=== PATIENT | male | born 1935 | race Caucasian/White ===

== ENCOUNTER → 2018-05-27 | Outpatient (CLI) | payer OTHER | END | disposition home or self-care (01) | LOC: PCVCCLINIC 11:30 | PROVIDERS: ATTEND Internal Medicine Cardiovascular Disease | DX: E78.00 Pure hypercholesterolemia, unspecified (principal); R06.02 Shortness of breath; N18.3 Chronic kidney disease, stage 3 (moderate); I44.7 Left bundle-branch block, unspecified; R09.89 Other specified symptoms and signs involving the circulatory and respiratory systems; I25.10 Atherosclerotic heart disease of native coronary artery without angina pectoris; Z95.2 Presence of prosthetic heart valve; Z87.891 Personal history of nicotine dependence | CPT/HCPCS: 80061; 93005; G0463 ==

== ENCOUNTER → 2018-06-15 | Outpatient (CLI) | payer OTHER ==
[~2018-06-15] MED LIST: DIAZEPAM 10 MG TABLET. ONE; FUROSEMIDE 40 MG/4 ML VIAL. ONE; HEPARIN 1,000 UNIT/ML VIAL for PCVC ONE; IOHEXOL 350 MG/ML 100 ML VIAL. ONE; IOHEXOL 350 MG/ML 50 ML VIAL. ONE; IV NORMAL SALINE 1000ML BAG 1,000 ML ONE; IV NORMAL SALINE 500ML BAG 1,000 ML ONE; LIDOCAINE 1% PF 30 ML VIAL. ONE; LIDOCAINE 1%/EPI 1:100,000 20 ML VIAL. ONE; METOPROLOL TARTRATE 5 MG/5 ML VIAL. IVP ONE; MIDAZOLAM HCL/PF 2 MG/2 ML VIAL. ONE; fentaNYL PF VIAL 100 MCG/2 ML VIAL ONE
--- NOTE | 2018-06-15 13:44 | PCVCINTER ---
EXAM: 1. AORTOGRAM AND BILATERAL ILIOFEMORAL ANGIOGRAPHY 2. BILATERAL RENAL ANGIOGRAPHY 3. RIGHT COMMON FEMORAL VEIN SHEATH PLACEMENT INDICATION: Hypertension. Renal atherosclerosis. Peripheral arterial disease. Planned right heart catheterization. PROCEDURE: Procedure and risks of the procedures listed above were discussed with the patient and consent obtained. Risks including but not limited to bleeding, infection, stroke, vascular injury, neurologic injury, embolization, allergic reactions, bowel ischemia requiring resection, and contrast-induced nephropathy requiring dialysis were discussed as appropriate and consent obtained. Patient was placed on the angiography table. IV conscious sedation was used throughout procedure with appropriate monitoring from 12:15 PM through 12:45 PM. The right groin was prepped and draped in the normal sterile fashion. Ultrasound was used to interrogate the right groin and demonstrate the right common femoral artery. An ultrasound image was saved. Under ultrasound guidance a 21 gauge needle was used to gain access into the right common femoral artery and a 5F vascular sheath was placed. Under ultrasound guidance access into the right common femoral vein was obtained in the standard fashion and a 7 Algerian sheath was placed for right heart catheterization to follow by Dr. Gomez. Catheter was placed into the suprarenal abdominal aorta and abdominal aortic angiogram performed. Catheter was placed into the distal abdominal aorta and bilateral iliofemoral angiography performed. Catheter was placed into the right renal arteries and right renal angiograms performed. Catheter was placed into the left renal arteries and left renal angiograms performed. Dr. Gomez joined the procedure and he performed coronary angiography. Please see his separate dictation for details. Catheters and wires removed. Sheath was removed and hemostasis obtained using the FISH device. No immediate complications. FINDINGS: Aortogram: There is one right and 2 left renal arteries. Mild plaque infrarenal abdominal aorta is normal in caliber. Bilateral iliofemoral angiography: The right and left common iliac arteries are patent. Both internal iliac arteries are patent. The right and left external iliac arteries are patent. The right and left common femoral and profunda femoral arteries are patent as well as the visualized portions of the upper superficial femoral arteries bilaterally. Right renal artery: Minimal plaque proximal vessel does not cause significant stenosis. Left renal artery: There are 2 left renal arteries. Minimal plaque in the proximal portions of these vessels is not cause significant stenosis. IMPRESSION: No aortic or iliofemoral arterial flow-limiting stenosis. No significant renal artery stenosis. LOC:[id number]
--- NOTE | 2018-06-16 19:13 | PCVCINTER ---
APPROVED REPORT Study performed: 06/15/2018 11:58:27 Patient Details Patient Status: Out-Patient Room #: 3 The patient is a 83 year-old Male Event Personnel Jason Mendoza MD, Rena Taylor RT(R)(), Nicko Jansen RT(R), Viji Martin RT(R)(), Tobi Hernandez RN Risk Factors Dysplipidemia (Type: 1)Obesity, HypercholesterolemiaPhysical Activity, Last Creatanine 1.3Tobacco History (Former) Previous Procedures/Diagnoses Previous Femoral ProcedurePrevious Valve Surgery, Previous CHF, CAD, LV dysfunction, Arrhythmias - Supraventricular tachycardias->Persistent AF, Arrhythmias - Intraventricular conduction->Left bundle-branch block (LBBB), Valvular heart disease Procedure Narrative A Right Heart Catheterization was performed with a 7 Fr. Thompson-Laura catheter and pressure were recorded. Cardiac outputs were obtained by the Thermal Dilution method. The right coronary system was accessed and visualized with a JR4 catheter. The left coronary system was accessed and visualized with a JL4 catheter. Closure device was deployed with a 6 Fr FISH. Hemostasis was obtained with manual pressure following sheath removal without any complications. The patient tolerated the procedure well and there were no complications associated with the procedure. There was no hematoma. Hemodynamics The right atrial mean pressure is 14 mmHg. The right ventricular pressure is 49/3 mmHg. The pulmonary artery pressure is 51/18 mmHg with a mean of 31 mmHg. The mean pulmonary capillary wedge pressure is 20 mmHg. The aortic pressure is 106/45 mmHg with a mean of 68 mmHg. The left ventricular pressure is 16 mmHg with a mean of 14 mmHg. The cardiac output and index were assessed using thermodilution. The cardiac output using thermo method is 4.60 L/min. The cardiac index using thermo method is 2 L/min/m2. Conclusion #1 supravalvular aortography revealing trivial aortic insufficiency through mechanical aortic valve aortic root normal in size #2 left main short mildly disease giving rise to LAD and circumflex #3 LAD with mild disease extends around the apex #4 mild disease in a codominant circumflex anatomically nondominant but large in size #5 smaller dominant right coronary artery giving rise to the PDA minimal disease #6 successful right heart catheterization see above hemodynamics Recommendations and plan continue aggressive risk factor modification. Diuresis no indication for coronary intervention
== END | disposition home or self-care (01) ==
LOC: PCVCIMAG 15:44
PROVIDERS: ATTEND Internal Medicine Cardiovascular Disease
DX: I70.1 Atherosclerosis of renal artery (principal); I35.1 Nonrheumatic aortic (valve) insufficiency; I70.0 Atherosclerosis of aorta; I25.10 Atherosclerotic heart disease of native coronary artery without angina pectoris; I11.0 Hypertensive heart disease with heart failure; I50.9 Heart failure, unspecified; I47.1 Supraventricular tachycardia; I44.7 Left bundle-branch block, unspecified; Z87.891 Personal history of nicotine dependence; E78.5 Hyperlipidemia, unspecified; Z79.899 Other long term (current) drug therapy; I48.91 Unspecified atrial fibrillation; Z95.2 Presence of prosthetic heart valve
CPT/HCPCS: 36011; 36252; 75630; 76937; 93456; 93567; 99152; 99153; C1751; C1760; C1769; C1894; J1644; J1940; J2250; J3010; J3490; J7030; J7040; Q9967; 93460

== ENCOUNTER → 2018-06-30 | Outpatient (CLI) | payer OTHER | END | disposition home or self-care (01) | LOC: PCVCCLINIC 15:55 | PROVIDERS: ATTEND Internal Medicine Cardiovascular Disease | DX: I42.9 Cardiomyopathy, unspecified (principal); R94.31 Abnormal electrocardiogram [ECG] [EKG]; I35.0 Nonrheumatic aortic (valve) stenosis; I48.2 Chronic atrial fibrillation; I44.7 Left bundle-branch block, unspecified; I25.10 Atherosclerotic heart disease of native coronary artery without angina pectoris; Z95.2 Presence of prosthetic heart valve; Z79.01 Long term (current) use of anticoagulants; Z87.891 Personal history of nicotine dependence; Z72.89 Other problems related to lifestyle | CPT/HCPCS: 36415; 93005; G0463 ==

== ENCOUNTER → 2018-11-23 | Outpatient (CLI) | payer OTHER ==
--- NOTE | 2018-11-23 15:05 | PCVCIMAG ---
APPROVED REPORT Study performed: 11/23/2018 13:56:41 EXAM: Comprehensive 2D, Doppler, and color-flow Echocardiogram Patient Location: Echo lab Status: routine BSA: 2.25 HR: 66 bpmBP: 110/68 mmHg Rhythm: Atrial Fibrillation Other Information Study Quality: Adequate Indications Atrial Fibrillation CAD Mechanical Aortic Valve Replacement. 2D Dimensions IVSd: 10.11 (7-11mm)LVOT Diam: 19.68 (18-24mm) LVDd: 53.64 mm PWd: 9.36 (7-11mm)Ascending Ao: 40.69 (22-36mm) LVDs: 51.09 (25-40mm) Left Atrium: 56.31 (27-40mm) Aortic Root: 29.24 mm LV Single Plane 4CH: 19.30 % LV Single Plane 2CH: 28.50 % Biplane EF: 22.2 % Volumes Left Atrial Volume (Systole) Single Plane 4CH: 132.79 mLSingle Plane 2CH: 113.83 mL LA ESV Index: 57.00 mL/m2 Aortic Valve AoV Peak Pravin.: 3.88 m/s AO Peak Gr.: 39.42 mmHgLVOT Max P.17 mmHg AO Mean Gr.: 24.07 mmHgLVOT Mean P.43 mmHg AO V2 Mean: 2.81 m/sLVOT Max V: 1.02 m/s AO V2 VTI: 58.43 cmLVOT Mean V: 0.73 m/s CAMILO (VTI): 1.08 [id number] V1 VTI: 20.83 cm CAMILO Vmax: 0.80 cm2 SV (LVOT): 63.37 mL Mitral Valve E/A Ratio: 1.0 MV Decel. Time: 1225.89 ms MV E Max Pravin.: 1.02 m/s MV A Pravin.: 1.03 m/s Pulmonary Valve PV Peak Gr.: 2.31 mmHg Tricuspid Valve TR Peak Pravin.: 2.46 m/s TR Peak Gr.: 24.23 mmHg Left Ventricle The left ventricle is normal size. There is global hypokinesis of the left ventricle. There is normal left ventricular wall thickness. Left ventricular systolic function is severely decreased.discordant septal motion LVEF is 20-25%. This study is not technically sufficient to allow evaluation of the LV diastolic function due to atrial fibrillation. Right Ventricle The right ventricle is normal size. The right ventricular systolic function is normal. Atria The left atrium size is normal. The right atrium size is normal. Aortic Valve Mechanical Aortic Valve Replacement. Peak gradient is 39mmHg. Mean gradient is 23mmHg. Aortic Valve Area is .8cm2. Trace aortic regurgitation. There is no aortic valvular stenosis. Mitral Valve The mitral valve is normal in structure. Mild mitral regurgitation. No evidence of mitral valve stenosis. Tricuspid Valve The tricuspid valve is normal in structure. Mild tricuspid regurgitation. Pulmonic Valve The pulmonary valve is normal in structure. Trace pulmonic regurgitation. Great Vessels The aortic root is normal in size. IVC is normal in size and collapses >50% with inspiration. Pericardium There is no pericardial effusion. <Conclusion> The left ventricle is normal size. There is global hypokinesis of the left ventricle. Left ventricular systolic function is severely decreased.discordant septal motion LVEF is 20-25%. This study is not technically sufficient to allow evaluation of the LV diastolic function due to atrial fibrillation. The right ventricle is normal size. The left atrium size is normal. Mechanical Aortic Valve Replacement. Peak gradient is 39mmHg. Mean gradient is 23mmHg. Aortic Valve Area is .8cm2. Trace aortic regurgitation. Mild mitral regurgitation. Mild tricuspid regurgitation. The aortic root is normal in size. There is no pericardial effusion.
== END | disposition home or self-care (01) ==
LOC: PCVCIMAG 13:31
PROVIDERS: ATTEND Internal Medicine Cardiovascular Disease
DX: I08.1 Rheumatic disorders of both mitral and tricuspid valves (principal); I48.2 Chronic atrial fibrillation; I25.10 Atherosclerotic heart disease of native coronary artery without angina pectoris; I42.9 Cardiomyopathy, unspecified; I44.7 Left bundle-branch block, unspecified; I73.9 Peripheral vascular disease, unspecified; E78.5 Hyperlipidemia, unspecified; R06.02 Shortness of breath; Z95.2 Presence of prosthetic heart valve
CPT/HCPCS: 93306

== ENCOUNTER → 2019-05-18 | Outpatient (CLI) | payer OTHER ==
--- NOTE | 2019-05-18 09:31 | PCVCIMAG ---
EXAM: BILATERAL RENAL ULTRASOUND AND BILATERAL RENAL DUPLEX INDICATION: Hypertension. Progressive renal insufficiency. FINDINGS: Right kidney: Length measures 10.0 cm. No hydronephrosis or extensive renal scarring. Right renal duplex: Adequate technical quality. No sonographic evidence of renal artery stenosis. The aortic to renal artery ratio is 1.6. The renal vein is patent. Left kidney: Length measures 11.5 cm. No hydronephrosis or extensive renal scarring. Left renal duplex: Adequate technical quality. No sonographic evidence of renal artery stenosis. Note is made of 2 left renal arteries. The aortic to renal artery ratio is 2.3. The renal vein is patent. Bladder: No obvious abnormalities. IMPRESSION: No significant renal artery stenosis. No hydronephrosis bilaterally. LOC:[id number]
--- NOTE | 2019-05-18 11:23 | PCVCIMAG ---
APPROVED REPORT Study performed: 05/18/2019 09:51:34 EXAM: Comprehensive 2D, Doppler, and color-flow Echocardiogram Patient Location: Echo lab Room #: 3Status: routine BSA: 2.24 HR: 60 bpmBP: 124/82 mmHg Rhythm: Atrial Fibrillation Other Information Study Quality: Good Indications Abnormal ECG Aortic Valve Disease Congestive Heart Failure Atrial Fibrillation CAD Cardiomyopathy S/P AVR Shahida-shiley tilting disc 1983 2D Dimensions IVSd: 9.91 (7-11mm)LVOT Diam: 21.60 (18-24mm) LVDd: 66.70 mm PWd: 10.19 (7-11mm)Ascending Ao: 36.25 (22-36mm) LVDs: 48.63 (25-40mm) Left Atrium: 49.61 (27-40mm) Aortic Root: 18.49 mm LV Single Plane 4CH: 32.60 % LV Single Plane 2CH: 35.72 % Biplane EF: 33.9 % Volumes Left Atrial Volume (Systole) Single Plane 4CH: 118.14 mLSingle Plane 2CH: 122.43 mL Biplane LA Volume: 125.00 mLLA ESV Index: 56.00 mL/m2 Aortic Valve AoV Peak Pravin.: 3.47 m/s AO Peak Gr.: 46.31 mmHgLVOT Max P.76 mmHg AO Mean Gr.: 27.72 mmHgLVOT Mean P.63 mmHg AO V2 Mean: 2.44 m/sLVOT Max V: 1.07 m/s AO V2 VTI: 75.43 cmLVOT Mean V: 0.77 m/s CAMILO (VTI): 1.06 [id number] V1 VTI: 21.92 cm CAMILO Vmax: 1.13 cm2 SV (LVOT): 80.27 mL Mitral Valve MV E Max Pravin.: 1.01 m/s MV PHT: 52.79 ms MVA (PHT): 4.17 cm2 IVRT: 86.51 ms Pulmonary Valve PV Peak Pravin.: 0.92 m/sPV Peak Gr.: 3.37 mmHg Tricuspid Valve TR Peak Pravin.: 3.06 m/s TR Peak Gr.: 37.33 mmHg TV Vmax: 0.63 m/sPA Pressure: 44.00 mmHg Left Ventricle Left ventricle is moderately dilated. Paradoxical septal motion consistent with conduction abnormality. There is global hypokinesis of the left ventricle. There is normal left ventricular wall thickness. There is no ventricular septal defect visualized. Left ventricular systolic function is moderately decreased. LVEF is 30-35%. This study is not technically sufficient to allow evaluation of the LV diastolic function due to atrial fibrillation. Right Ventricle Right ventricle is moderately dilated. The right ventricular systolic function is normal. Atria Left atrium is severely dilated. Right atrium is severely dilated. Aortic Valve A Shahida-Shiley tilting disc mechanical valve is seen. Increased velocity across the mechanical valve is seen Mechanical aortic valve is present. Mild aortic regurgitation. Highest mean aortic valve gradient is 28_mmHg. Peak aortic valve gradient is 48_mmHg. Calculated CAMILO by the continuity equation is 1.0_cm2. Mitral Valve The mitral valve is normal in structure. Moderate to severe mitral regurgitation No evidence of mitral valve stenosis. Tricuspid Valve The tricuspid valve is normal in structure. Moderate to severe tricuspid regurgitation with a PA pressure of 44 mmHg. Pulmonic Valve The pulmonary valve is normal in structure. There is no pulmonic valvular regurgitation. Great Vessels The aortic root is normal in size. The ascending aorta is normal in size. Aortic arch is normal in caliber. IVC is normal in size and collapses >50% with inspiration. Pericardium There is no pericardial effusion. <Conclusion> Left ventricle is moderately dilated. Left ventricular systolic function is moderately decreased. Paradoxical septal motion consistent with conduction abnormality. There is global hypokinesis of the left ventricle. There is no ventricular septal defect visualized. LVEF is 30-35%. This study is not technically sufficient to allow evaluation of the LV diastolic function due to atrial fibrillation. Right ventricle is moderately dilated. Left atrium is severely dilated. Right atrium is severely dilated. A Shahida-Shiley tilting disc mechanical valve is seen. Increased velocity across the mechanical valve is seen Mechanical aortic valve is present. Mild aortic regurgitation. Highest mean aortic valve gradient is 28_mmHg. Peak aortic valve gradient is 48_mmHg. Calculated CAMILO by the continuity equation is 1.0_cm2. Moderate to severe mitral regurgitation Moderate to severe tricuspid regurgitation with a PA pressure of 44 mmHg. The aortic root is normal in size. There is no pericardial effusion.
== END | disposition home or self-care (01) ==
LOC: PCVCIMAG 08:17
PROVIDERS: ATTEND Internal Medicine Cardiovascular Disease
DX: I08.3 Combined rheumatic disorders of mitral, aortic and tricuspid valves (principal); I48.2 Chronic atrial fibrillation; I11.0 Hypertensive heart disease with heart failure; I50.9 Heart failure, unspecified; I42.9 Cardiomyopathy, unspecified; I25.10 Atherosclerotic heart disease of native coronary artery without angina pectoris; E78.5 Hyperlipidemia, unspecified; I73.9 Peripheral vascular disease, unspecified; I44.7 Left bundle-branch block, unspecified; N28.9 Disorder of kidney and ureter, unspecified; Z95.2 Presence of prosthetic heart valve
CPT/HCPCS: 76770; 93306; 93975